=== PATIENT | female | born 1945 | race Caucasian/White ===

== ENCOUNTER 2019-12-13 09:42 | Emergency (ER) | payer MEDICARE, SELFPAY ==
--- NOTE | ~2019-12-13 | XR_ITS ---
EXAMINATION: XR wrist RT min 3V EXAM DATE: 12/13/2019 10:02 INDICATION: Fell last night. Right wrist pain radial aspect. TECHNIQUE: Right wrist frontal, frontal with ulnar deviation, oblique and lateral projections obtain ed and reviewed. Comparison is made to prior examination from 12/05/2006. FINDINGS: Right wrist scapholunate joint space is maintained. There are no acute fractures or disloca tions identified. There is no subcutaneous gas. The soft tissue is unremarkable. There are no rad iopaque foreign bodies. Compared to prior exam, previously seen radial nondisplaced fracture has hea led. IMPRESSION: 1. Right wrist exam without acute osseous findings. Reviewed, dictated and finalized at location B.
--- NOTE | 2019-12-13 09:44 | ED.GENADULT ---
HPI - General Adult General Chief complaint: Extremity Injury, Upper Stated complaint: R HAND/WRIST INJURY Time Seen by Provider: 12/13/19 09:44 Source: patient Mode of arrival: ambulatory Limitations: no limitations History of Present Illness HPI narrative: 74-year-old female patient [facility] with complaints of right wrist pain. Patient states that she tripped and fell outside yesterday and states she put her arms out to help brace her fall. Patient states that since then she has had some right wrist pain. Patient states she has had a hairline fracture to the wrist before in the past. Patient states she has been taking Advil for the pain and icing the wrist. Patient is right-hand dominant. Denies any numbness or tingling to the fingertips or any pain to the fingertips. Related Data Home Medications Medication Instructions Recorded Confirmed No Home Medications 12/13/19 12/13/19 Allergies Allergy/AdvReac Type Severity Reaction Status Date / Time cephalexin Allergy Unknown Diarrhea Verified 12/13/19 09:47 Review of Systems Review of Systems: Narrative: CONSTITUTIONAL: Denies fever, chills, or sweats. EYES: Denies visual changes, redness, or discharge. ENT: Denies rhinorrhea, congestion, sore throat, or otalgia. CARDIOVASCULAR: Denies chest pain, palpitations, or edema. RESPIRATORY: Denies cough or dyspnea. GASTROINTESTINAL: Denies abdominal pain, nausea, vomiting, or diarrhea. GENITOURINARY: Denies dysuria or hematuria. SKIN: Denies rash or itching. MUSCULOSKELETAL: Denies back pain, joint pain, or myalgia. Positive right wrist pain NEUROLOGIC: Denies headache, numbness, or weakness. PSYCHIATRIC: Denies anxiety or depression. [facility] Past Medical History Medical History Patient denies medical problems Family History Family History Father Patient's father is , Onset Age: 51 Family history of liver disease Family history of emphysema Social History Social History Smoking status: Never smoker Alcohol intake: current Comments At the time of my signature I agree with nursing past medical history, surgical, social, and family history. There is no relevant family history pertinent to the presenting complaint. Exam Narrative: Exam Narrative: GENERAL: Well-appearing, well-nourished, and in no acute distress. HEAD: Normocephalic, atraumatic. EYES: PERRLA and EOMI. ENT: Nares clear, no rhinorrhea or epistaxis. Mucous membranes moist. NECK: Supple. No lymphadenopathy CHEST: Clear to auscultation. No respiratory distress. HEART: Regular rate and rhythm. No murmur heard. Normal peripheral pulses. ABDOMEN: Soft, nontender, nondistended, normal active bowel sounds. EXTREMITIES: The R wrist is without obvious asymmetry or deformity when compared to the L wrist. No surface trauma, open wounds, swelling, or obvious deformity. No overlying erythema or warmth. No bony crepitus or focal area of TTP. No scaphoid fullness or tenderness to direct palpation or axial load. Normal flex/extension, ulnar/radial deviation. Motor/sensory function of ulnar, radial, median nerves intact. Ulnar and radial pulses intact. SKIN: Warm, dry, no rash. NEURO: No focal deficits. Alert and oriented x3. Course Reevaluation(s) Reevaluation #1: Reevaluated patient after x-ray resulted. Discussed with her that there is no acute fracture noted to the wrist at this time. Discussed with patient that she can continue wearing her wrist splint, taking Tylenol and ibuprofen as needed for pain, elevating it, and icing it to help with pain and swelling. Patient verbalized understanding of this. A copy of the x-ray results were provided to the patient today. Denies any other questions or concerns at this time. Date: 12/13/19 Time: 10:14 Vital Signs Vital signs: Vit
[2019-12-13 09:47] VITALS: BP 152/79; PULSE 73; RESP 12; TEMP 36.7; O2SAT 100
== END 2019-12-13 10:15 | disposition home or self-care (01) ==
PROVIDERS: Emergency Provider Nurse Practitioner Family
DX: S63.501A Unspecified sprain of right wrist, initial encounter (principal); W01.0XXA Fall on same level from slipping, tripping and stumbling without subsequent striking against object, initial encounter
CPT/HCPCS: 73110; 99213; G0463

== ENCOUNTER → 2020-07-10 17:34 | Outpatient (CLI) | payer MEDICARE, SELFPAY ==
--- NOTE | ~2020-07-10 | DEXA_ITS ---
Bone Density Report Name: Rima Melgar Age: 75 Sex: Female Ethnicity: White Date of : 1945 Indication: osteopenia; height loss; hysterectomy; postmenopausal Referring Provider: DAMIAN PAT D.O. Study: Bone densitometry was performed. Exam Date: July 10, 2020 Accession number: [id number] Bone Density: Region BMD T-score Z-score Classification AP Spine (L1-L4) 0.898 -1.4 0.9 Osteopenia Femoral Neck (Left) 0.687 -1.5 0.5 Osteopenia Total Hip (Left) 0.864 -0.6 1.0 Normal Femoral Neck (Right) 0.667 -1.6 0.3 Osteopenia Total Hip (Right) 0.834 -0.9 0.8 Normal Total Hip Mean 0.849 -0.8 0.9 Normal World Health Organization criteria for BMD impression classify patients as: Normal (T-score at or above -1.0), Osteopenia (T-score between -1.0 and -2.5), or Osteoporosis (T-score at or below -2.5). 10-year Fracture Risk(1): Major Osteoporotic Fracture 11% Hip Fracture 2.0% Reported Risk Factors: [place] (), Neck BMD=0.667, BMI=23.4 (1) FRAX(R) Version 3.08. Fracture probability calculated for an untreated patient. Fracture probability may be lower if the patient has received treatment. Previous Exams: Region Exam Age BMD T-score BMD Change BMD Change Date g/cm2 vs Baseline vs Previous AP Spine(L1-L4) 07/10/2020 75 0.898 -1.4 -0.102 0.049* 07/22/2017 72 0.849 -1.8 -0.151 0.097* 03/18/2010 64 0.752 -2.7 -0.248 -0.048* 01/24/2009 63 0.800 -2.2 -0.200 -0.057* 12/20/2006 61 0.856 -1.7 -0.143 0.007 10/27/2005 60 0.849 -1.8 -0.151 -0.079* 05/13/2004 58 0.928 -1.1 -0.072 -0.072 01/12/2002 56 1.000 -0.4 Total Hip(Left) 07/10/2020 75 0.864 -0.6 0.019 0.009 07/22/2017 72 0.854 -0.7 0.009 0.061* 03/18/2010 64 0.793 -1.2 -0.052 0.003 01/24/2009 63 0.790 -1.2 -0.055 -0.050* 12/20/2006 61 0.840 -0.8 -0.005 -0.009 10/27/2005 60 0.849 -0.8 0.004 -0.045* 05/13/2004 58 0.893 -0.4 0.049 0.049 01/12/2002 56 0.845 -0.8 Total Hip(Right) 07/10/2020 75 0.834 -0.9 -0.004 0.022 07/22/2017 72 0.812 -1.1 -0.026 0.000 03/18/2010 64 0.812 -1.1 -0.026 0.018 01/24/2009 63 0.794 -1.2 -0.044 -0.006 12/20/2006 61 0.800 -1.2 -0.038 -0.049* 10/27/2005 60 0.849 -0.8 0.012 -0.008 05/13/2004 58 0.
== END ==
PROVIDERS: PCP Internal Medicine; Visit Provider Internal Medicine
DX: M85.89 Other specified disorders of bone density and structure, multiple sites (principal)
CPT/HCPCS: 77080

== ENCOUNTER → 2020-07-19 01:56 | Outpatient (CLI) | payer MEDICARE, SELFPAY ==
[2020-07-19 19:16] LABS: SARS-CoV-2 RNA PCR Negative
== END ==
PROVIDERS: PCP Internal Medicine; Visit Provider Internal Medicine Gastroenterology
DX: Z01.812 Encounter for preprocedural laboratory examination (principal); Z20.822 Contact with and (suspected) exposure to COVID-19
CPT/HCPCS: C9803; U0003; U0005

== ENCOUNTER 2020-07-22 00:38 | Day surgery (SDC) | payer MEDICARE, SELFPAY ==
[2020-07-15 11:32] VITALS: BMI 23.2
[2020-07-22 06:20] VITALS: BP 140/77; PULSE 86; RESP 20; TEMP 36.7; O2SAT 100; BMI 23.1
[2020-07-22] MEDS: LACTATED RINGERS 1,000 ML 150 ML IV CONT (06:38)
--- NOTE | 2020-07-22 07:04 | P.PNAN_ITS ---
Anes - Initial Pre Proc Eval Procedure: Operation Date: 07/22/20 07:30 Proposed Procedures p Screening Colonoscopy - Bill Del Castillo MD Date/Time: 07/22/20 07:04 Surgeon: Bill Del Castillo MD Pre Op Diagnosis: hx colon polyps, family hx colon polyps Patient Data Age: 75 Gender: F Height: 1.57 m Weight: 57.5 kg Last Vital Signs Temp 36.7 C 07/22/20 06:20 Pulse 86 07/22/20 06:20 Resp 20 07/22/20 06:20 BP 140/77 07/22/20 06:20 Pulse Ox 100 07/22/20 06:20 Allergies Allergy/AdvReac Type Severity Reaction Status Date / Time cephalexin Allergy Unknown Diarrhea Verified 07/22/20 06:19 Home Medications Medication Instructions Recorded Confirmed Type ascorbate calcium (vitamin C) 500 500 mg PO DAILY 06/06/20 07/15/20 History mg tablet bimatoprost 0.01 % eye drops 1 drp EACH EYE DAILY 06/06/20 07/22/20 History calcium citrate 315 mg 1 tablet PO DAILY 06/06/20 07/15/20 History calcium-vitamin D3 6.25 mcg (250 unit) tablet cholecalciferol (vitamin D3) 25 25 mcg PO DAILY 06/06/20 07/15/20 History mcg (1,000 unit) capsule glucosamine-chondroitin 250 mg-200 2 tablet PO TID 06/06/20 07/15/20 History mg tablet melatonin 10 mg capsule 10 mg PO QHS 06/06/20 07/15/20 History Patient hx anesthesia problems: none Family hx anesthesia problems: none [facility] Past Medical History Medical History (Updated 07/21/20 @ 08:43 by Tavo Aguilar DO) Asthma Osteoporosis Patient denies medical problems PONV (postoperative nausea and vomiting) Family History Family History Father Patient's father is , Onset Age: 51 Family history of liver disease Family history of emphysema Social History Social History Smoking status: Never smoker Tobacco type: cigarettes Alcohol intake: current Substance use type: does not use Living arrangements: with family Gender identity (if verbalized by the patient): Female Spiritual care concerns: No Anes - Eval Final PreProcedure Day of Procedure 07/22/20 07:04 Patient weight: normal Heart: regular rate and rhythm Lungs: clear to auscultation and normal air movement Airway: Mallampati scale class II Neurological: alert and oriented Last oral intake: >/= 8 hours ASA classification: II Emergent: no Anesthetic plan: proceed Anesthesia type and monitoring: general GIVS and standard monitoring Informed Consent: The patient's anesthetic plan and its attendant risks and benefits were discussed with the patient/family/POA. Questions were solicited and answers provided to the satisfaction of the patient/family/POA.
--- NOTE | 2020-07-22 07:11 | PM.HPGS ---
History of Present Illness History of Present Illness Consent: Risks, benefits, and alternatives have been discussed and questions answered. Patient agrees to proceed with procedure. Chief complaint: hx colon polyps, family hx colon polyps Narrative: Rima Melgar is a 75 year old female Here for colon cancer screening. She has a family history of colon cancer, her mother and 2 aunts Review of Systems Review of Systems: All systems reviewed & are unremarkable except as noted in HPI and below PMFSH Past Medical History Medical History Asthma Osteoporosis Patient denies medical problems PONV (postoperative nausea and vomiting) Family History Family History Father Patient's father is , Onset Age: 51 Family history of liver disease Family history of emphysema Social History Social History Smoking status: Never smoker Tobacco type: cigarettes Alcohol intake: current Substance use type: does not use Living arrangements: with family Gender identity (if verbalized by the patient): Female Spiritual care concerns: No Meds Home Medications and Allergies Home Medications Medication Instructions Recorded Confirmed Type ascorbate calcium (vitamin C) 500 500 mg PO DAILY 06/06/20 07/15/20 History mg tablet bimatoprost 0.01 % eye drops 1 drp EACH EYE DAILY 06/06/20 07/22/20 History calcium citrate 315 mg 1 tablet PO DAILY 06/06/20 07/15/20 History calcium-vitamin D3 6.25 mcg (250 unit) tablet cholecalciferol (vitamin D3) 25 25 mcg PO DAILY 06/06/20 07/15/20 History mcg (1,000 unit) capsule glucosamine-chondroitin 250 mg-200 2 tablet PO TID 06/06/20 07/15/20 History mg tablet melatonin 10 mg capsule 10 mg PO QHS 06/06/20 07/15/20 History Allergies Allergy/AdvReac Type Severity Reaction Status Date / Time cephalexin Allergy Unknown Diarrhea Verified 07/22/20 06:19 Vital Signs Vital Signs - 24 hr 07/22/20 06:20 Temperature 36.7 C Pulse Rate 86 Respiratory Rate 20 Blood Pressure 140/77 Pulse Oximetry 100 Exam Resp: Auscultation: clear to auscultation bilaterally Cardio: Rate: regular rate Rhythm: regular rhythm GI: GI Palp: Yes Soft to palpation and No Tenderness to palpation present (GI) Assessment and Plan Assessment and plan (1) Colon cancer screening: Code(s): Z12.11 - Encounter for screening for malignant neoplasm of colon Status: Acute Assessment and Plan: Colonoscopy with possible biopsy or polypectomy or cautery or injection of substances.
[2020-07-22 07:45] VITALS: BP 110/60; PULSE 76; RESP 22; O2SAT 99
[2020-07-22 07:55] VITALS: BP 108/59; PULSE 60; RESP 18; O2SAT 100
[2020-07-22 08:05] VITALS: BP 123/84; PULSE 72; RESP 18; O2SAT 100
== END 2020-07-22 08:09 | disposition home or self-care (01) ==
PROVIDERS: PCP Internal Medicine; Visit Provider Internal Medicine Gastroenterology
PROC: 0DJD8ZZ Inspection of Lower Intestinal Tract, Via Natural or Artificial Opening Endoscopic (ICD-10-PCS; CPT 45378; principal; 2020-07-22 07:30)
DX: Z12.11 Encounter for screening for malignant neoplasm of colon (principal); D12.5 Benign neoplasm of sigmoid colon; D12.3 Benign neoplasm of transverse colon; Z80.0 Family history of malignant neoplasm of digestive organs; J45.909 Unspecified asthma, uncomplicated; M81.0 Age-related osteoporosis without current pathological fracture
CPT/HCPCS: 45380; 45385; 88305; C9803; J2704; J7120; U0003; U0005

== ENCOUNTER 2021-10-08 15:54 | Outpatient (CLI) | payer MEDICARE, SELFPAY ==
--- NOTE | ~2021-10-08 | CT_ITS ---
EXAMINATION: CT soft tissue neck w con DATE: 10/08/2021 16:41 INDICATION: Cervical lymphadenopathy. TECHNIQUE: Computed tomography (CT) of the neck was performed with 75 mL Omnipaque 300 intravenous co ntrast. Automated exposure control and iterative reconstruction technique were employed. The dose-grace gth product was 358.28 mGy-cm. COMPARISON: None FINDINGS: There is mild scarring at the lung apices. There are likely changes of ocular lens replacem ent surgeries. There are no pathologically enlarged lymph nodes. Left submandibular gland is smaller than the right. There is plaque in the proximal internal carotid arteries with 0% stenosis relative t o normal distal artery lumen diameters. The paranasal sinuses are clear. The mastoid air cells are no rmal. There is severe cervical spondylosis. IMPRESSION: 1. No cervical lymphadenopathy. Reviewed, dictated and finalized at location A.
== END 2021-10-08 15:55 | disposition home or self-care (01) ==
PROVIDERS: PCP Physician Assistant; Visit Provider Physician Assistant
DX: R59.1 Generalized enlarged lymph nodes (principal)
CPT/HCPCS: 70491; Q9967

== ENCOUNTER 2022-08-04 08:56 | Emergency (ER) | payer MEDICARE, SELFPAY ==
--- NOTE | ~2022-08-04 | XR_ITS ---
XR wrist LT min 3V 08/04/2022 09:20 Indication: Left wrist pain after fall Procedure: 3 views left wrist Comparison: No prior studies for comparison. Findings: There is a comminuted intra-articular impaction fracture of the distal radius with minimal ventral displacement. There is soft tissue swelling adjacent to the fracture. No other fracture ident ified. No foreign bodies. Impression: 1: Comminuted intra-articular impaction fracture distal aspect of the radius with minimal ventral dis placement. Reviewed, dictated and finalized at location B. Impression: 1: Comminuted intra-articular impaction fracture distal aspect of the radius wi th minimal ventral displacement.
[2022-08-04 09:01] VITALS: BP 149/88; PULSE 75; RESP 16; TEMP 36.4; O2SAT 100
--- NOTE | 2022-08-04 09:22 | ED.GENADULT ---
HPI - General Adult General Chief complaint: Extremity Injury, Upper Stated complaint: L wrist, pickleball Time Seen by Provider: 08/04/22 09:07 Source: patient Mode of arrival: ambulatory Limitations: no limitations History of Present Illness HPI narrative: This is a 77-year-old female who presents to the ED with chief complaint of left wrist injury while playing pickle ball this morning. Patient states she fell on a cord onto the outstretched left wrist. She had immediate pain but did not feel any pop. Endorses nausea without vomiting. Endorses reduced range of motion due to pain. Denies numbness or weakness. Denies any further site of pain or injury. Related Data Home Medications Medication Instructions Recorded Confirmed calcium citrate 315 mg 1 tablet PO DAILY 06/06/20 02/10/22 calcium-vitamin D3 6.25 mcg (250 unit) tablet (Citracal + Vitamin D Maximum) cholecalciferol (vitamin D3) 25 25 mcg PO DAILY 06/06/20 02/10/22 mcg (1,000 unit) capsule glucosamine-chondroitin 250 mg-200 2 tablet PO TID 06/06/20 02/10/22 mg tablet (Osteo Bi-Flex) Allergies Allergy/AdvReac Type Severity Reaction Status Date / Time cephalexin Allergy Unknown Diarrhea Verified 08/04/22 09:08 Review of Systems Review of Systems: CONSTITUTIONAL: Denies fever, chills, or sweats. SKIN: Denies rash or itching. MUSCULOSKELETAL: See HPI NEUROLOGIC: Denies headache, numbness, dizziness, or weakness. PSYCHIATRIC: Denies anxiety or depression. [facility] Past Medical History Medical History Asthma Osteoporosis Patient denies medical problems PONV (postoperative nausea and vomiting) Family History Family History Father Patient's father is , Onset Age: 51 Family history of liver disease Family history of emphysema Social History Social History (Updated 02/10/22 @ 14:08 by Daisy Motta CMA) Smoking status: Never smoker Tobacco type: cigarettes Alcohol intake: current Substance use type: does not use Lack of Transportation: No Lack of Food: Never True Current Housing: I Have Housing Concerned About Future Housing: No Difficulty Paying Gas/Electric Bills: No Difficulty Paying for Meds: No Currently Unemployed: No Education: Master's Degree or Higher Difficulty w/ Childcare or Family Care: No Living arrangements: with family Gender identity (if verbalized by the patient): Female Spiritual care concerns: No Exam Narrative: GENERAL: Well-appearing, well-nourished, and in no acute distress. HEAD: Normocephalic, atraumatic. EYES: PERRLA and EOMI. ENT: Nares clear, no rhinorrhea or epistaxis. Mucous membranes moist. Oropharynx without tonsillar hypertrophy exudate or other lesions. NECK: Supple. No adenopathy or masses. CHEST: No respiratory distress. Clear to auscultation. No wheezes rales or rhonchi HEART: Regular rate and rhythm. No murmur heard. Normal peripheral pulses. ABDOMEN: Soft, nontender, nondistended, normal active bowel sounds. MSK: Right wrist: Benign Left wrist: no bruising or deformity present. Mild tenderness to the volar radial aspect of the left wrist. No anatomical snuffbox tenderness. Neurovascularly intact distally. SKIN: Warm, dry, no rash. NEURO: Alert and oriented x3. No focal deficits. PSYCH: Normal mood and affect. Course Course Emergency Course: Consult Dr. Benjamin, orthopedics. Recommends outpatient follow-up and volar splint placement. Vital Signs Vital signs: Vital Signs Temperature 97.5 F L 08/04/22 09:01 Pulse Rate 75 08/04/22 09:01 Respiratory Rate 16 08/04/22 09:01 Blood Pressure 149/88 H 08/04/22 09:01 Pulse Oximetry 100 08/04/22 09:01 Temperature 97.5 F L 08/04/22 09:01 Pulse Rate 68 08/04/22 10:27 Respiratory Rate 15 08/04/22 10:27 Blood Pressure 136/79 08/04/22 10:27 Pulse Oximetr
[2022-08-04] MEDS: ONDANSETRON HCL ODT 4 MG TABLET PO (09:31)
[2022-08-04 10:27] VITALS: BP 136/79; PULSE 68; RESP 15; O2SAT 100
== END 2022-08-04 11:12 | disposition home or self-care (01) ==
PROVIDERS: Emergency Provider Physician Assistant; PCP Internal Medicine
DX: S52.502A Unspecified fracture of the lower end of left radius, initial encounter for closed fracture (principal); W01.0XXA Fall on same level from slipping, tripping and stumbling without subsequent striking against object, initial encounter; Y93.69 Activity, other involving other sports and athletics played as a team or group
CPT/HCPCS: 29125; 73110; 99284; A4565; A9270

== ENCOUNTER 2022-11-23 11:16 | Outpatient (CLI) | payer MEDICARE, SELFPAY ==
--- NOTE | ~2022-11-23 | XR_ITS ---
EXAMINATION: XR chest 2V Exam Date/Time: 11/23/2022 11:50 CDT HISTORY: cough Comparison: None. RESULT: Lines, tubes, and devices: None. Lungs and pleura: Mild senescent change. Mild biapical pleural scarring. Scattered calcified granulo mas. No focal consolidation. Cardiomediastinal silhouette: Calcified left hilar nodes, otherwise unremarkable. Other: No acute osseous or upper abdominal finding. IMPRESSION: No acute cardiopulmonary process. Reviewed, dictated and finalized at location K.
[2022-11-23 12:45] LABS: SARS-CoV-2 RNA PCR Negative (Negative)
== END 2022-11-23 11:17 | disposition home or self-care (01) ==
LOC: ANHLAB 11:17
PROVIDERS: PCP Internal Medicine; Visit Provider Internal Medicine
DX: R05.9 Cough, unspecified (principal)
CPT/HCPCS: 71046; 87635

== ENCOUNTER 2022-11-26 09:28 | Outpatient (CLI) | payer MEDICARE, SELFPAY ==
[2022-11-26 10:45] LABS: RSV RNA, RT-PCR Negative (Negative)
== END 2022-11-26 09:29 | disposition home or self-care (01) ==
PROVIDERS: PCP Internal Medicine; Visit Provider Physician Assistant
DX: R05.9 Cough, unspecified (principal)
CPT/HCPCS: 87634

== ENCOUNTER 2024-02-03 16:14 | Emergency (ER) | payer MEDICARE, SELFPAY ==
--- NOTE | ~2024-02-03 | XR_ITS ---
EXAMINATION: XR nasal bones min 3V DATE: 02/03/2024 16:38 INDICATION: Nose injury. TECHNIQUE: 3 views of the nasal bones were obtained. COMPARISON: Neck CT 10/08/2021 FINDINGS: Alignment is normal. There are old fracture deformities of the nasal bones. IMPRESSION: 1. No acute fracture or radiopaque foreign body. Reviewed, dictated and finalized at location A. OR SPECIALIST
--- NOTE | 2024-02-03 16:23 | ED.WOUNDLAC ---
HPI - Wound/Laceration General Chief Complaint: Wound/Laceration Stated Complaint: Injured Nose Time Seen by Provider: 02/03/24 16:26 Source: patient, RN notes reviewed and old records reviewed Mode of arrival: ambulatory Limitations: no limitations History of Present Illness HPI narrative: 78 year old female presents to express care with complaint of pulling a rake out of closet in her garage and a pole cultivator came out and one of the spike jabbed in her right nose causing nose bleeding. Patient reports that bleeding only lasted a short time and stopped but spouse was concerned so she called nurse line and was instructed to come in to ED or urgent care for evaluation. Patient has no active bleeding at this time denies any acute headache or any dizziness, Onset (ago): hour(s) (2 hours ago) Location: face (up right nare) Place: home Patient tetanus UTD: Yes Treatments prior to arrival: other (cotton ball in right nare) Related Data Home Medications Medication Instructions Recorded Confirmed calcium 315 mg (as 1 tablet PO DAILY 06/06/20 02/03/24 citrate)-vitamin D3 6.25 mcg (250 unit) tablet (Citracal + Vitamin D Maximum) cholecalciferol (vitamin D3) 25 25 mcg PO DAILY 06/06/20 02/03/24 mcg (1,000 unit) capsule glucosamine-chondroitin 250 mg-200 2 tablet PO TID 06/06/20 02/03/24 mg tablet (Osteo Bi-Flex) vitamins A,C,U-oldu-exscru 4,296 1 cap PO BID 05/30/23 02/03/24 mcg-226 mg-90 mg capsule (PreserVision AREDS) Allergies Allergy/AdvReac Type Severity Reaction Status Date / Time penicillin G Allergy Mild Hives Verified 02/03/24 16:21 cephalexin Allergy Unknown Diarrhea Verified 02/03/24 16:21 Review of Systems Review of Systems: CONSTITUTIONAL: Denies fever, chills, or sweats. EYES: Denies visual changes, redness, or discharge. ENT: Denies rhinorrhea, congestion, sore throat, or otalgia, reports initially small amount of blood from right nares which has stopped CARDIOVASCULAR: Denies chest pain, palpitations, or edema. RESPIRATORY: Denies cough or dyspnea. GASTROINTESTINAL: Denies abdominal pain, nausea, vomiting, or diarrhea. GENITOURINARY: Denies dysuria or hematuria. SKIN: Denies rash or itching. MUSCULOSKELETAL: Denies back pain, joint pain, or myalgia. NEUROLOGIC: Denies headache, numbness, or weakness. PSYCHIATRIC: Denies anxiety or depression. All systems reviewed & are unremarkable except as noted in HPI and below PMFSH Past Medical History Medical History Asthma Osteoporosis Patient denies medical problems PONV (postoperative nausea and vomiting) Family History Family History Father Patient's father is , Onset Age: 51 Family history of liver disease Family history of emphysema Alcoholism Hypertension Unknown Hypertension Depression Heart disease Mother Cancer Sibling Depression Heart disease Thyroid disorder Social History Social History Smoking status: Never smoker Tobacco type: cigarettes Alcohol intake: current Substance use type: does not use Lack of Transportation: No Lack of Food: Never True Current Housing: I Have Housing Concerned About Future Housing: No Difficulty Paying Gas/Electric Bills: No Difficulty Paying for Meds: No Currently Unemployed: No Education: Master's Degree or Higher Difficulty w/ Childcare or Family Care: No Living arrangements: with family Gender identity (if verbalized by the patient): Female Spiritual care concerns: No Comments At time of signature, agree with nursing past medical, surgical, social and family history. There is no relevant family history pertinent to the presenting complaint Exam Narrative: GENERAL: Well-appearing, well-nourished, and in no acute distress. HEAD: Normocephalic, atraumatic. EYES: PERRLA and EOMI. ENT: Nares right with small amount of dried blood noted no active bleeding, left nares clear, no rhinorrhea , denies any facial pressure or any headache pain, or feelings of dizziness. Mucous membranes moist.TM's nrmal and throat with no swelling or redness NECK: Supple.no lymphadenopathy CHEST: Clear to auscultation. No respiratory distress.SAO2 100% on room air. HEART: Regular rate and rhythm. No murmur heard. Normal peripheral pulses. ABDOMEN: Soft, nontender, nondistended, normal active bowel sounds. EXTREMITIES: Normal range of motion. No edema. SKIN: Warm, dry, no rash. NEURO: No focal deficits. Alert and oriented x3. Course Course Emergency Course: Patient is aware of diagnosis, understands and agrees to treatment plan.? Anticipatory guidance given.? Patient agrees to follow-up as directed and is aware of reasons to seek care at the emergency department. Portions of this record may have been created with voice recognition software Level of Care: Express Care Visit Vital Signs Vital signs: Vital Signs Temperature 36.6 C 02/03/24 16:25 Pulse Rate 72 02/03/24 16:25 Respiratory Rate 16 02/03/24 16:25 Blood Pressure 176/89 H 02/03/24 16:25 Pulse Oximetry 100 02/03/24 16:25 Temperature 36.6 C 02/03/24 16:25 Pulse Rate 72 02/03/24 16:25 Respiratory Rate 16 02/03/24 16:25 Blood Pressure 160/90 H 02/03/24 17:02 Pulse Oximetry 100 02/03/24 16:25 Reviewed MDM - Wound/Laceration Differential Diagnosis Differential diagnosis: Likely other (puncture to right internal nares, nasal injury, bleeding from right nares which has resolved) Medical Records Attestation: I reviewed the patient's medical records. Imaging Data Attestation: I personally reviewed and interpreted this imaging study as follows: My impression: no acute fracture or radiopaque foreign body old fracture deformities Radiologist's impression: [facility] [address] [place] [address] XRay Report Signed Patient: Rima Melgra : 1945 MR#: [id number] Age: 78 Acct:[id number] Loc: [facility] ADM Date: 02/03/24Attending Dr: Ordering Physician: Rand Joy APRN Date of Service: 02/03/24 Procedure(s): XR nasal bones min 3V Accession Number(s): [id number] cc: WHITTLING ROOM OPERATOR PHYSICIAN; Rand Joy APRN~ EXAMINATION: XR nasal bones min 3V DATE: 02/03/2024 16:38 INDICATION: Nose injury. TECHNIQUE: 3 views of the nasal bones were obtained. COMPARISON: Neck CT 10/08/2021 FINDINGS: Alignment is normal. There are old fracture deformities of the nasal bones. IMPRESSION: 1. No acute fracture or radiopaque foreign body. Reviewed, dictated and finalized at location A. ER FIELD SERVICE TECHNICIAN Dictated By: Nathan Raines MD 02/03/24 1643 Signed By: <Electronically signed by Nathan Raines MD in OV> Critical Care Time Critical Care Time Critical Care Time: No Discharge Plan Discharge Clinical Impression: Injury of nose Patient Disposition: Home, Self-Care Condition: Stable Instructions: Nosebleed (ED) Additional Instructions: monitor for any further nasal bleeding, acute headaches. or dizziness Ice pack to nasal area as needed Tylenol or Ibuprofen for any fever or any discomfort. If any increased symptoms concerns go directly to ED for further evaluation If your symptoms persist, change or worsen significantly before you can contact your personal physician then please, without delay, go to the emergency department for further evaluation. Follow-up with PCP in 7-10 days or sooner if needed Follow up with PCP soon in regards to your blood pressure which is elevated above threshold for referral. Blood pressure above 120/80 may indicate pre-hypertension. 160/90 manual Monitor for any fevers Avoid blowing nose Prescriptions: No Action calcium citrate-vitamin D3 [Citracal + D Maximum] 315 mg-6.25 mcg (250 unit) tablet 1 tablet PO DAILY glucosamine-chondroitin [Osteo Bi-Flex] 250-200 mg tablet 2 tablet PO TID Rx Instructions: give after food/meal cholecalciferol (vitamin D3) 25 mcg (1,000 unit) capsule 25 mcg PO DAILY PreserVision AREDS 4,296 mcg-226 mg-90 mg capsule 1 cap PO BID Follow-up/Referrals: PHYSICIAN,WHITTLING ROOM OPERATOR [Primary Care Provider] - Time of Disposition: 17:03 Quality Mcgrann Coma Scale Eyes: Open Verbal: Oriented and Alert Motor: Follows Commands [place] Coma Total Score: 15
[2024-02-03 16:25] VITALS: BP 176/89; PULSE 72; RESP 16; TEMP 36.6; O2SAT 100
[2024-02-03 17:02] VITALS: BP 160/90
== END 2024-02-03 17:06 | disposition home or self-care (01) ==
PROVIDERS: Emergency Provider Registered Nurse
DX: S09.92XA Unspecified injury of nose, initial encounter (principal); W20.8XXA Other cause of strike by thrown, projected or falling object, initial encounter; J45.909 Unspecified asthma, uncomplicated; M81.0 Age-related osteoporosis without current pathological fracture
CPT/HCPCS: 70160; 99213; G0463

== ENCOUNTER 2024-11-01 14:42 | Outpatient (CLI) | payer MEDICARE, SELFPAY ==
--- NOTE | ~2024-11-01 | DEXA_ITS ---
Bone Density Report Name: CARISSA PERKINS Age: 79 Sex: Female Ethnicity: White Date of : 1945 Indication: osteopenia; height loss; prior fracture; Referring Provider: JAROCHO, RAFAEL Study: Bone densitometry was performed. Exam Date: November 01, 2024 Accession number: [id number] Bone Density: Region BMD T-score Z-score Classification AP Spine(L1-L4) 0.932 -1.0 1.5 Normal Femoral Neck (Left) 0.643 -1.9 0.3 Osteopenia Total Hip (Left) 0.812 -1.1 0.8 Osteopenia Femoral Neck (Right) 0.620 -2.1 0.1 Osteopenia Total Hip (Right) 0.785 -1.3 0.6 Osteopenia Total Hip Mean 0.798 -1.2 0.7 Osteopenia World Health Organization criteria for BMD impression classify patients as: Normal (T-score at or above -1.0), Osteopenia (T-score between -1.0 and -2.5), or Osteoporosis (T-score at or below -2.5). 10-year Fracture Risk(1): Major Osteoporotic Fracture 20% Hip Fracture 5.4% Reported Risk Factors: [place] (), Neck BMD=0.620, BMI=23.1, previous fracture (1) FRAX(R) Version 3.08. Fracture probability calculated for an untreated patient. Fracture probability may be lower if the patient has received treatment. Previous Exams: -- Region Exam Age BMD T-score BMD Change BMD Change Date g/cm2 vs Baseline vs Previous -- AP Spine (L1-L4) 11/01/2024 79 0.932 -1.0 -6.8%# 3.8%* 07/10/2020 75 0.898 -1.4 -10.2%# 5.8%* 07/22/2017 72 0.849 -1.8 -15.1%# 12.9%* 03/18/2010 64 0.752 -2.7 -24.8%# -6.0%* 01/24/2009 63 0.800 -2.2 -20.0%# -6.6%* 12/20/2006 61 0.856 -1.7 -14.3%# 0.9% 10/27/2005 60 0.849 -1.8 -15.1%# -8.5%* 05/13/2004 58 0.928 -1.1 -7.2%# -7.2%# 01/12/2002 56 1.000 -0.4 Total Hip(Left) 11/01/2024 79 0.812 -1.1 -3.9%# -6.0%* 07/10/2020 75 0.864 -0.6 2.2%# 1.1% 07/22/2017 72 0.854 -0.7 1.1%# 7.7%* 03/18/2010 64 0.793 -1.2 -6.1%# 0.4% 01/24/2009 63 0.790 -1.2 -6.5%# -6.0%* 12/20/2006 61 0.840 -0.8 -0.6%# -1.0% 10/27/2005 60 0.849 -0.8 0.5%# -5.0%* 05/13/2004 58 0.893 -0.4 5.7%# 5.7%# 01/12/2002 56 0.845 -0.8 Total Hip(Right) 11/01/2024 79 0.785 -1.3 -6.3%# -5.9%* 07/10/2020 75 0.834 -0.9 -0.5%# 2.7% 07/22/2017 72 0.812 -1.1 -3.1%# 0.0% 03/18/2010 64 0.812 -1.1 -3.1%# 2.3% 01/24/2009 63 0.794 -1.2 -5.2%# -0.8% 12/20/2006 61 0.800 -1.2 -4.5%# -5.8%* 10/27/2005 60 0.849 -0.8 1.4%# -0.9% 05/13/2004 58 0.857 -0.7 2.3%# 2.3%# 01/12/2002 56 0.838 -0.9 -- *Denotes significance at 95% confidence level, LSC for AP Spine = 0.022 g/cm2, LSC for Total Hip = 0.027 g/cm2 # Denotes dissimilar scan types or analysis methods Clinical Information Provided by Patient: Has had a low trauma fracture Has used the following medications: Vitamin D, Calcium Patient maximum height was 64 Menopause Age: 43 Drinks caffeinated beverages Onset of menses at age 12 Number of children 2 Missed period for more than 6 months in a row Impression: The patient has low bone mass, based on the Right Femoral Neck T-score. The patient has an estimated ten-year risk of hip fracture of 5.4% and an estimated ten-year risk of major fracture of 20%, based on the WHO FRAX algorithm. The patient has risk factors, including: previous fracture. The BMD for the Total Hip(Left) decreased, changing by -6.0% since the last DXA exam. The BMD for the Total Hip(Right) decreased, changing by -5.9% since the last DXA exam. Discussion: BONE DENSITY IS LOW AT ONE OR MORE SKELETAL SITES. THE PATIENT'S BMD AND CLINICAL RISK FACTORS CONTRIBUTE TO THIS PATIENT'S HIGH RISK OF FRACTURE. This patient's lowest T-score is low at one or more skeletal sites. It meets the World Health Organization's (WHO) criteria for ?low bone mass? (T-score between -1.0 and -2.5). The patient's 10-year risk of hip fracture and 10 year risk of a major osteoporotic fracture as calculated by FRAX exceeds the threshold where pharmacological therapy is recommended by the National Osteoporosis Foundation (NOF). However, all treatment decisions require clinical judgment and consideration of individual patient factors, including patient preferences, comorbidities, previous drug use, risk factors not captured in the FRAX model (e.g., frailty, falls, vitamin D deficiency, increased bone turnover, interval significant decline in bone density) and possible under or overestimation of fracture risk by FRAX. The patient should follow a healthful lifestyle (good nutrition with adequate calcium and vitamin D, and appropriate weight-bearing exercise). Follow-Up: Consider a repeat BMD and Vertebral Fracture Assessment (VFA) exam in 2 years or sooner if medically necessary, to reassess this patient's status. Reported by: LAVELLE on 11/01/2024 3:01:00 PM. Reviewed, dictated and finalized at location A.
== END 2024-11-01 14:43 | disposition home or self-care (01) ==
LOC: MICIMG 14:44
PROVIDERS: PCP Family Medicine; Visit Provider Family Medicine
DX: M85.89 Other specified disorders of bone density and structure, multiple sites (principal); Z78.0 Asymptomatic menopausal state
CPT/HCPCS: 77080